=== PATIENT | male | born 1990 | race Caucasian/White ===

== ENCOUNTER 2016-11-05 19:40 | Emergency (ER) | payer SELFPAY ==
[2016-11-05 19:50] VITALS: BP 139/75
[2016-11-05] MEDS ORDERED: Tetan/Diph/Pertus SYR(Tdap)* 0.5 ML SYR(BOOSTRIX) use SYR IM ONE (20:17)
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
[2016-11-05] MEDS ORDERED: Lidocaine 1%* 5 ML VIAL ONE (20:26)
[2016-11-05] MEDS ORDERED: Amoxicillin/Clavulanate TAB* 875 MG PO ONE (21:01)
== END 2016-11-05 21:22 | disposition home or self-care (01) ==
LOC: UCCORT 19:40
DX: S61.411A Laceration without foreign body of right hand, initial encounter (principal); S61.011A Laceration without foreign body of right thumb without damage to nail, initial encounter; W54.0XXA Bitten by dog, initial encounter; Y93.89 Activity, other specified; Y92.9 Unspecified place or not applicable; Z23 Encounter for immunization; F12.90 Cannabis use, unspecified, uncomplicated; F17.210 Nicotine dependence, cigarettes, uncomplicated
CPT/HCPCS: 12001; 90471; 90715; 99212; A9270-GY; G0463

== ENCOUNTER 2017-07-27 16:10 | Emergency (ER) | payer SELFPAY ==
[2017-07-27 16:30] VITALS: BP 117/73
--- NOTE | 2017-07-27 16:30 | UC ---
Headache HPI - HPI Summary HPI Summary: 26 year old male with a history of migraines presents with complains of severe right sided headache. - History Of Current Complaint Chief Complaint: UCHeadache Stated Complaint: MIGRAINE Time Seen by Provider: 07/27/17 16:28 Hx Obtained From: Patient Onset/Duration: Sudden Onset Initially Headache Was: Initial Pain Scale(0-10)= - 7, Moderate Currently Pain Is: Current Pain Scale(0-10)= - 7, Moderate Pain Scale Used: 0-10 Numeric - 7 - Allergies/Home Medications Allergies/Adverse Reactions: Allergies Allergy/AdvReac Type Severity Reaction Status Date / Time No Known Allergies Allergy Verified 07/27/17 16:29 Home Medications: Home Medications [id number] [Excedrin Migraine] 2 tab PO ONCE 07/27/17 [ History Confirmed 07/27/17] Omeprazole CAP* [Prilosec CAP* 20 MG] 20 mg PO BID 07/27/17 [History Confirmed 07/27/17] PMH/Surg Hx/FS Hx/Imm Hx - Surgical History Surgical History: Yes Surgery Procedure, Year, and Place: appy - Family History Known Family History: Positive: None - Social History Alcohol Use: None Substance Use Type: Marijuana Substance Use Comment - Amount & Last Used: before bed Smoking Status (MU): Light Every Day Tobacco Smoker Type: Cigarettes Amount Used/How Often: 1/2 ppd - Immunization History Most Recent Influenza Vaccination: none Review of Systems Constitutional: Negative Skin: Negative Eyes: Negative ENT: Negative Respiratory: Negative Cardiovascular: Negative Gastrointestinal: Negative Genitourinary: Negative Motor: Negative Neurovascular: Negative Musculoskeletal: Negative Neurological: Headache Psychological: Negative All Other Systems Reviewed And Are Negative: Yes Physical Exam Triage Information Reviewed: Yes Vital Signs: Initial Vital Signs Temp 37.3 C 07/27/17 16:26 Pulse 64 07/27/17 16:26 Resp 15 07/27/17 16:26 BP 117/73 07/27/17 16:26 Pulse Ox 100 07/27/17 16:26 Vital Signs Reviewed: Yes Eye Exam: Normal ENT Exam: Normal Dental Exam: Normal Neck exam: Normal Neck: Positive: 1 Respiratory Exam: Normal Cardiovascular Exam: Normal Abdominal Exam: Normal Musculoskeletal Exam: Normal Neurological Exam: Normal Psychological Exam: Normal Skin Exam: Normal Headache Course/Dx - Differential Dx/Diagnosis Differential Diagnosis/HQI/PQRI: Migraine Provider Diagnoses: migraine Discharge - Discharge Plan Condition: Stable Disposition: HOME Prescriptions: Butalb/Acetamin/Caff TAB* [Fioricet TAB*] 1 tab PO Q8H PRN #9 tab MDD 3 PRN Reason: Headache Patient Education Materials: Migraine Headache (ED) Forms: *Work Release Referrals: Jerel Mendoza MD [Medical Doctor] - No Primary Care Phys,NOPCP [Primary Care Provider] -
[2017-07-27] MEDS ORDERED: Ketorolac INJ* 30 MG/ML 1 ML VIAL IM ONE (16:35)
== END 2017-07-27 17:21 | disposition home or self-care (01) ==
LOC: MERGE 16:10 → UCCORT 16:10
DX: G43.909 Migraine, unspecified, not intractable, without status migrainosus (principal); F17.210 Nicotine dependence, cigarettes, uncomplicated
CPT/HCPCS: 96372; 99202; G0463; J1885

== ENCOUNTER 2017-08-26 14:13 | Emergency (ER) | payer SELFPAY ==
[2017-08-26 15:35] VITALS: BP 150/88
--- NOTE | 2017-08-26 16:30 | UC ---
Dave Lam Stephanie, scribed for Leno Arce MD on 08/26/17 at 1625 . Headache HPI - HPI Summary HPI Summary: The pt is a 27 y/o M presenting to with c/o RECINOS that began 2 days ago. The pt reports sleep disturbances and dizziness.The pain is located behind his R eye. The pt denies weakness, nausea and numbness. The pt states that this migraine is lasting longer than all his others. - History Of Current Complaint Chief Complaint: UCHeadache Stated Complaint: HEADACHE Time Seen by Provider: 08/26/17 16:16 Hx Obtained From: Patient Onset/Duration: Lasting Days - 2, Still Present Currently Pain Is: Moderate Pain Intensity: 7 Pain Scale Used: 0-10 Numeric Timing: Constant Character: Migraine Location of Headache: Frontal - behind R eye Aggravating Factor(s): Nothing Allevating Factor(s): Nothing Associated Signs And Symptoms: Positive: Dizziness. Negative: Nausea, Vomiting - Allergies/Home Medications Allergies/Adverse Reactions: Allergies Allergy/AdvReac Type Severity Reaction Status Date / Time No Known Allergies Allergy Verified 08/26/17 15:35 PMH/Surg Hx/FS Hx/Imm Hx Neurological History: Migraine - Surgical History Surgical History: Yes Surgery Procedure, Year, and Place: appy - Family History Known Family History: Positive: Hypertension - Social History Occupation: Employed Part-time Lives: With Family Alcohol Use: None Substance Use Type: Marijuana Substance Use Comment - Amount & Last Used: before bed Smoking Status (MU): Light Every Day Tobacco Smoker Type: Cigarettes Amount Used/How Often: 1/2 ppd Have You Smoked in the Last Year: Yes - Immunization History Most Recent Influenza Vaccination: none Review of Systems Constitutional: Other - sleep disturbances Skin: Negative Eyes: Negative ENT: Negative, Dental Pain Cardiovascular: Negative Gastrointestinal: Negative Genitourinary: Negative Motor: Negative Neurovascular: Negative Musculoskeletal: Negative Neurological: Headache, Other - dizziness Psychological: Negative All Other Systems Reviewed And Are Negative: Yes Physical Exam Triage Information Reviewed: Yes Vital Signs: Initial Vital Signs Temp 98.0 F 08/26/17 15:31 Pulse 68 08/26/17 15:31 Resp 18 08/26/17 15:31 BP 150/88 08/26/17 15:31 Pulse Ox 99 08/26/17 15:31 Vital Signs Reviewed: Yes - Additional Comments General: well-appearing, no pain distress Skin: warm, color reflects adequate perfusion, dry Head: normal Eyes: EOMI, GARRICK ENT: normal Neck: supple, nontender Respiratory: CTA, breath sounds present Cardiovascular: RRR Abdomen: soft, nontender Bowel: present Musculoskeletal: normal, strength/ROM intact Neurological: normal, sensory/motor intact, A&O x3 Psychological: affect/mood appropriate Headache Course/Dx - Course Course Of Treatment: PATIENT REPORTS RX FROM LAST [facility] HELPED HEADACHES. I HAVE PRESCRIBED FIORICET. ALSO DISCUSSED F/U WITH NEUROLOGY FOR RECURRENT HEADACHES. F/U PMD;NEUROLOGY, GET RECHECKED IF WORSE. - Differential Dx/Diagnosis Provider Diagnoses: HEADACHE Discharge - Discharge Plan Condition: Stable Disposition: HOME Prescriptions: Butalb/Acetamin/Caff TAB* [Fioricet TAB*] 1 tab PO Q6H PRN #10 tab MDD 3 PRN Reason: Headache Patient Education Materials: Acute Headache (ED) Referrals: [facility] [Provider Group] [facility] [Outside] No Primary Care Phys,NOPCP [Primary Care Provider] - Additional Instructions: FOLLOW UP WITH YOUR PRIMARY CARE DOCTOR AND NEUROLOGY. GET RECHECKED FOR ANY WORSENING OF YOUR CONDITION OR QUESTIONS OR CONCERNS. The documentation as recorded by the Dave villarreal Stephanie accurately reflects the service I personally performed and the decisions made by me, Leno Arce MD.
== END 2017-08-26 16:30 | disposition home or self-care (01) ==
LOC: UCEAST 14:13
DX: R51 Headache (principal); R42 Dizziness and giddiness; F12.90 Cannabis use, unspecified, uncomplicated; F17.210 Nicotine dependence, cigarettes, uncomplicated
CPT/HCPCS: 99212; G0463

== ENCOUNTER 2017-09-25 17:19 | Emergency (ER) | payer BC ==
--- NOTE | 2017-09-25 20:14 | UC ---
Lower Extremity/Ankle HPI - HPI Summary HPI Summary: 27 yo male with one week hx progressively worsening pain and swelling of left 4 th toe no recalled injury no f/c no hx MRSA - History of Current Complaint Chief Complaint: UCLowerExtremity Stated Complaint: LEFT FOOT SWOLLEN Time Seen by Provider: 09/25/17 20:03 Hx Obtained From: Patient Onset/Duration: Gradual Onset, Lasting Weeks Severity Initially: Mild Severity Currently: Severe Pain Intensity: 9 Pain Scale Used: 0-10 Numeric Aggravating Factor(s): Standing, Ambulation Alleviating Factor(s): Rest, Elevation Able to Bear Weight: Yes - Risk Factors Gout Risk Factors: Negative - Allergies/Home Medications Allergies/Adverse Reactions: Allergies Allergy/AdvReac Type Severity Reaction Status Date / Time No Known Allergies Allergy Verified 09/25/17 18:10 PMH/Surg Hx/FS Hx/Imm Hx Previously Healthy: Yes - Surgical History Surgical History: Yes Surgery Procedure, Year, and Place: appy - Family History Known Family History: Positive: Hypertension - Social History Alcohol Use: None Substance Use Type: None Substance Use Comment - Amount & Last Used: before bed Smoking Status (MU): Light Every Day Tobacco Smoker Type: Cigarettes Amount Used/How Often: 1/2 ppd Have You Smoked in the Last Year: Yes - Immunization History Most Recent Influenza Vaccination: none Review of Systems Constitutional: Negative Skin: Negative Eyes: Negative ENT: Negative Respiratory: Negative Cardiovascular: Negative Gastrointestinal: Negative Genitourinary: Negative Motor: Negative Neurovascular: Negative Musculoskeletal: Negative Neurological: Negative Psychological: Negative Is Patient Immunocompromised?: No All Other Systems Reviewed And Are Negative: Yes Physical Exam Triage Information Reviewed: Yes Appearance: Well-Appearing, No Pain Distress, Well-Nourished Vital Signs: Initial Vital Signs Temp 97.9 F 09/25/17 18:10 Pulse 52 09/25/17 18:10 Resp 16 09/25/17 18:10 BP 133/77 09/25/17 18:10 Pulse Ox 100 09/25/17 18:10 Vital Signs Reviewed: Yes Eyes: Positive: Conjunctiva Clear ENT: Positive: Hearing grossly normal, Uvula midline. Negative: Nasal congestion, Nasal drainage, Trismus, Muffled voice, Hoarse voice Neck: Positive: Supple Respiratory: Positive: Lungs clear, Normal breath sounds, No respiratory distress, No accessory muscle use Cardiovascular: Positive: RRR, No Murmur Musculoskeletal: Positive: Other: - see image Neurological: Positive: Alert Psychological Exam: Normal Procedures - Procedure Summary Procedure Summary: incise and drain left 4th toe abscess TO sterile prep anest with 5 cc 2% lidocaine (digital block) incised with 18 g needle no FB noted 4 drops of hawa pus expresses sterile dressing - Incision and Drainage Anesthesia: Digital Instrument(s): Needle Packing: Other - no packing Lower Extremity Course/Dx - Differential Dx/Diagnosis Provider Diagnoses: left 4th toe abscess. ascending lymphangitis Discharge - Discharge Plan Condition: Stable Disposition: HOME Prescriptions: Cephalexin CAP* [Keflex CAP*] 500 mg PO QID #28 cap Sulfamethox/Trimethoprim DS* [Bactrim DS 800/160 TAB*] 1 tab PO BID #12 tab Patient Education Materials: Abscess (ED), Lymphangitis (ED) Referrals: MADELEINE Siddiqui [Primary Care Provider] - Images Feet (Multiple View): 1 - red/swollen 2 - ascending lymphangitis
[2017-09-25 20:32] VITALS: BP 125/80
[2017-09-25] MEDS ORDERED: Lidocaine 2% PF * 5 ML VIAL INJ ONE (20:38)
[2017-09-25] MEDS ORDERED: Sulfamethox/Trimethoprim DS 800/160* TAB PO ONE ×2 (20:54→20:56)
[2017-09-25] MEDS ORDERED: Cephalexin CAP* 500 MG PO ONE ×2 (20:54→20:56)
--- NOTE | 2017-09-25 21:22 | RAD ---
Indication: Left fourth toe injury. 3 views of left fourth toe demonstrates no fracture. No evidence of foreign body is noted. No other bone or joint abnormality is noted. IMPRESSION: Unremarkable left fourth digit.
== END 2017-09-25 21:24 | disposition home or self-care (01) ==
LOC: UCCORT 17:19
DX: L02.612 Cutaneous abscess of left foot (principal); B95.61 Methicillin susceptible Staphylococcus aureus infection as the cause of diseases classified elsewhere; I89.1 Lymphangitis; F17.210 Nicotine dependence, cigarettes, uncomplicated
CPT/HCPCS: 10060; 87070; 87077; 87186; 87205; 87640; 87641; 99213; A9270-GY; G0463

== ENCOUNTER 2019-02-03 12:56 | Emergency (ER) | payer OTHER ==
[2019-02-03 13:22] VITALS: BP 124/69
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
== END 2019-02-03 14:01 | disposition home or self-care (01) ==
LOC: UCCORT 12:56
DX: F17.210 Nicotine dependence, cigarettes, uncomplicated (principal)
CPT/HCPCS: 87070; 87077; 87186; 87205; 87640; 87641; 99212; G0463